=== PATIENT | female | born 1980 | race Hispanic/Latino ===

== ENCOUNTER 2017-03-16 17:50 | Emergency (ER) | payer BC, OTHER ==
[2017-03-16 18:22] LABS: Hematocrit 26.6 % (36.0-47.0); Mean Platelet Volume 9.7 fL (7.4-10.4); Red Blood Cell (RBC) Count 4.04 mill/uL (4.20-5.40); White Blood Cell (WBC) Count 5.9 thou/uL (4.8-10.8)
[2017-03-16 18:42] LABS: ALT (SGPT) 249 U/L (8-55); AST (SGOT) 261 U/L (5-34); Alkaline Phosphatase 105 U/L (40-150); Anion Gap 11 mmol/L (10-20); BUN (Urea Nitrogen) 12 mg/dL (7.0-18.7); Bilirubin, Total 0.9 mg/dL (0.2-1.2); Calc. Creatinine Clearance 0 mL/min (70-130); Calcium 8.7 mg/dL (7.8-10.44); Carbon Dioxide 24 mmol/L (22-29); Chloride 108 mmol/L (98-107); Estimated GFR-MDRD Greater than 90; Globulin 3.5 g/dL (2.4-3.5); Lipase 26 U/L (8-78); Protein, Total 7.7 g/dL (6.0-8.3)
[2017-03-16 18:47] LABS: #Eosinphils 0.1 thou/uL (0.0-0.7); #Lymphocytes 1.7 thou/uL (1.20-3.40); #Monocytes 0.4 thou/uL (0.11-0.59); #Neutrophils 3.7 thou/uL (1.40-6.50); %Basophils 0.6 % (0.0-1.0); %Eosinophils 2.4 % (0.0-10.0); %Lymphocytes 29.2 % (21.0-51.0); Anisocytosis SLIGHT = 6-15 cells (100X) (0-5/hpf); Hypochromia SLIGHT = 6-15 cells (100X) (0-5/hpf); Microcytosis SLIGHT = 6-15 cells (100X) (0-5/hpf); Ovalocytes SLIGHT = 2-5 cells (100X) (0-1/hpf); Tear Drops SLIGHT = 2-5 cells (100X) (0-1/hpf)
[2017-03-16 19:02] LABS: Bilirubin Small (Negative); Blood, Urine Negative (Negative); Glucose, Urine (Dipstick) Negative (Negative); Ketone, Urine Trace mg/dL (Negative); Nitrite Negative (Negative); Protein, Urine (Dipstick) Trace mg/dL (Neg-Trace)
--- NOTE | 2017-03-16 20:21 | ULT ---
GALLBLADDER ULTRASOUND: Date: 03/16/17 CLINICAL HISTORY: Abdominal pain, elevated liver function enzymes. FINDINGS: There is no focal hepatic lesion or acute gallbladder pathology. The common duct is normal measuring 4.0 mm in diameter. There is no ascites. IMPRESSION: No acute abnormality demonstrated within the right upper quadrant. POS: [facility]
== END 2017-03-16 22:20 | disposition home or self-care (01) ==
LOC: ERS 17:50
DX: K80.50 Calculus of bile duct without cholangitis or cholecystitis without obstruction (principal); D64.9 Anemia, unspecified; E11.9 Type 2 diabetes mellitus without complications; I10 Essential (primary) hypertension; F32.9 Major depressive disorder, single episode, unspecified; Z79.899 Other long term (current) drug therapy
CPT/HCPCS: 36415; 76705; 80053; 80074; 81003; 81025; 83690; 85025; 86308

== ENCOUNTER 2017-03-17 15:24 | Outpatient (CLI) | payer OTHER | END 2017-03-17 15:25 | disposition home or self-care (01) | LOC: LABBT 15:24 | PROVIDERS: ATTEND Surgery | DX: Z01.812 Encounter for preprocedural laboratory examination (principal); K80.20 Calculus of gallbladder without cholecystitis without obstruction ==

== ENCOUNTER 2017-03-18 09:16 | Inpatient (IN) | payer OTHER ==
[2017-03-17 15:58] VITALS: BMI 34.8
[2017-03-18] MEDS ORDERED: cefOXitin Sodium 2 GM, Syringe 1 ML in Sterile Water 10 ML SLOW IVP SCH (10:00)
[2017-03-18] MEDS ORDERED: Bupivacaine/Epinephrine 0.25% 30 ML VIAL ONE (10:50)
[2017-03-18] MEDS ORDERED: Midazolam HCl 2 mg/2 ml Vial ONE (10:59)
[2017-03-18] MEDS ORDERED: Fentanyl 100 MCG/2 ML VIAL ONE ×2 (10:59→13:40)
[2017-03-18] MEDS ORDERED: Iothalamate Meglumine 60% 50 ML VIAL FS ONE (11:00)
[2017-03-18] MEDS ORDERED: Morphine 4 MG/ML Carpuject SLOW IVP PRN (13:18)
[2017-03-18] MEDS ORDERED: Calcium Carbonate 500 MG ChewTAB PO PRN (13:18)
[2017-03-18] MEDS ORDERED: Promethazine HCl 25 MG/ML VIAL IM PRN ×2 (13:18→14:59)
[2017-03-18] MEDS ORDERED: Dextrose 5% in Water 1,000 ML IV PRN (13:18)
[2017-03-18] MEDS ORDERED: Mag-Al 1200 mg/1200 mg/30 ML UDCUP PO PRN (13:18)
[2017-03-18] MEDS ORDERED: Ondansetron HCl/PF 4 MG/2 ML Vial IVP PRN ×2 (13:18→14:59)
[2017-03-18] MEDS ORDERED: hydrALAZINE 20 MG/ML VIAL SLOW IVP PRN (13:18)
[2017-03-18] MEDS ORDERED: Dextrose 50% Abboject 50 ML SYRINGE SLOW IVP PRN (13:18)
[2017-03-18] MEDS ORDERED: Insulin Regular 300 UNITS/3 ML VIAL SC PRN (13:18)
--- NOTE | 2017-03-18 13:34 | OP ---
DATE OF PROCEDURE: 03/18/2017 PREOPERATIVE DIAGNOSES: Symptomatic cholelithiasis with elevated liver function tests. SURGEON: Dex Allred M.D. PROCEDURE PERFORMED: Laparoscopic cholecystectomy with intraoperative cholangiogram. INDICATIONS: A 37-year-old female who has lost a lot of weight and started having episodic right upp er quadrant pain. Ultrasound showed cholelithiasis. Her LFTs were elevated. FINDINGS: She had a little bit of thickened gallbladder wall, small stones. The cholangiogram showe d, I could only get a wisp of dye into the duodenum despite glucagon, suggestive of an obstruction. PROCEDURE: After informed consent was obtained, the patient was taken to the operating room and give n general endotracheal anesthesia. She was placed in the supine position. The abdomen was prepped a nd draped in the usual fashion. Local anesthesia infiltrated subcutaneously and deep and a supraumbi lical incision was performed. The subcu divided sharply. The fascia incised. Digital palpation rev ealed no local adhesions. A blunt 10/12 mm trocar inserted. Pneumoperitoneum was created to a press ure of 15 mmHg. Zero degree laparoscope inserted. Under direct vision, three 5 mm ports placed subc ostally. The gallbladder grasped and advanced superiorly, peritoneum lysed distally to expose the cy stic artery, cystic duct and critical view. A clip was placed at the base of the gallbladder. An in cision made in the cystic duct, an Arrow cholangiocatheter inserted. An intraoperative cholangiogram was performed. This showed normal intrahepatic ducts, normal extrahepatic ducts, but no flow into t he duodenum, only a wisp. We gave her 1 mg of glucagon and waited for 5 minutes, repeated the exam, still no flow into the duodenum. The duct was triply ligated with Hemoclips and divided. The artery triply ligated with Hemoclips and divided. The gallbladder was removed from its fossa utilizing víctor ctrocautery, removed from the abdomen through the umbilical port. Hemostasis was assured. Trocars a nd retractors removed. The fascia closed with interrupted 0 Vicryl suture. The skin closed with int errupted 4-0 Rapide. Dermabond applied. The patient tolerated the procedure well and transferred to recovery in good condition. Sponge and needle count verified correct x2.
[2017-03-18] MEDS ORDERED: Promethazine HCl 25 MG/ML VIAL ONE (13:39)
[2017-03-18] MEDS ORDERED: HYDROmorphone 0.5 MG/0.5 ML SYRINGE ONE (14:24)
--- NOTE | 2017-03-18 14:51 | RAD ---
OPERATIVE CHOLANGIOGRAM: Technique: Four fluoroscopic images from OR presented. Indication: Intraoperative cholangiogram performed during cholecystectomy procedure. FINDINGS: Common duct is opacified. There is suggestion of a lucent filling defect in the upper common duct. No other filling defect or stricture is seen. Lower common duct is not well evaluated. POS: [facility]
[2017-03-18] MEDS ORDERED: Promethazine HCl 25 MG/ML VIAL SLOW IVP PRN (14:59)
[2017-03-18] MEDS: Lactated Ringer's 1,000 ML IV SCH ×2 (15:03→21:01)
[2017-03-18] MEDS ORDERED: Propofol 200 MG/20 ML VIAL ONE (15:58)
[2017-03-18] MEDS ORDERED: Dexamethasone 20 MG/5 ML VIAL ONE (15:58)
[2017-03-18] MEDS ORDERED: PHENYLEPHRINE-NS 100 MCG/ML 10 ML SYRINGE ONE (15:58)
[2017-03-18] MEDS ORDERED: Ondansetron HCl/PF 4 MG/2 ML Vial ONE (15:58)
[2017-03-18] MEDS ORDERED: Ketorolac Tromethamine 30 MG/ML VIAL ONE (15:58)
[2017-03-18] MEDS ORDERED: Glycopyrrolate 0.2 MG/ML 5 ML SYRINGE ONE (15:58)
[2017-03-18] MEDS ORDERED: Lidocaine 1% PF 5 ML VIAL ONE (15:58)
[2017-03-18] MEDS: Piperacillin/Tazobactam 3.375 GM in Sodium Chloride 0.9% 100 ML IVPB SCH ×2 (16:02→21:01)
[2017-03-18] MEDS ORDERED: Morphine 10 MG/ML CARPUJECT SLOW IVP PRN (16:55)
[2017-03-18] MEDS ORDERED: Sodium Chloride 0.9% 10 ML ONE (17:02)
[2017-03-18] MEDS: Morphine 10 MG/ML CARPUJECT SLOW IVP PRN ×2 (17:04→21:01)
[2017-03-18] MEDS: Famotidine/PF 20 mg/2ml Vial SLOW IVP SCH (21:01)
[2017-03-18] MEDS: Famotidine 20 MG TAB PO SCH (23:25)
[2017-03-19] MEDS: Morphine 10 MG/ML CARPUJECT SLOW IVP PRN ×4 (01:09→22:01)
[2017-03-19] MEDS: Piperacillin/Tazobactam 3.375 GM in Sodium Chloride 0.9% 100 ML IVPB SCH ×4 (03:33→21:57)
--- NOTE | 2017-03-19 05:37 | CON ---
DATE OF CONSULTATION: 03/18/2017 REASON FOR CONSULTATION: Possible choledocholithiasis. CONSULTING PHYSICIAN: Dr. Dex Allred. HISTORY OF PRESENT ILLNESS: Patient is a 37-year-old female with past medical history of GERD, hypertension, diabetes, and morbid obesity status post gastric sleeve bariatric surgery presenting with increased right lower quadrant abdominal pain and elevated transaminitis. Earlier today, patient was taken to the operating room for cholecystectomy secondary to symptomatic cholelithiasis and mildly elevated liver enzymes with a mildly elevated AST and ALT (per surgeon). During the course of the operation, an intraoperative cholangiogram was performed with minimal contrast seen extruded across the ampulla and into the small intestine concerning for obstruction. The surgical procedure was completed uneventfully with no significant complications; however, the patient was admitted overnight for observation and evaluation by GI service for possible choledocholithiasis. At the current point in time, she does endorse mild abdominal pain in all abdominal quadrants characterized as an aching/sharp type pain severity of approximately 4 to 5/10 nonradiating with exacerbation by palpation to the regions consistent with post-surgical cholecystectomy. Otherwise, no complaints or problems. Denies nausea, vomiting, fevers, chills, shortness of breath, dysphagia, odynophagia, constipation, diarrhea, or jaundice. OUTPATIENT MEDICATIONS: Unavailable for review. PAST MEDICAL HISTORY: See HPI. PAST SURGICAL HISTORY: Cholecystectomy, gastric sleeve surgery in 11/2015. FAMILY HISTORY: Denies any GI malignancy. SOCIAL HISTORY: Denies any tobacco, alcohol or illicit drug use. INPATIENT MEDICATIONS: Reviewed. ALLERGIES: No known drug allergies. PHYSICAL EXAMINATION: VITAL SIGNS: Temperature 98.4, pulse 75, blood pressure 119/56, respiratory rate 18, satting 98% on room air. GENERAL: No acute distress. Alert and oriented x4. NECK: Supple. No JVD noted. CARDIOVASCULAR: Regular rate and rhythm with no discernible murmurs, gallops or rubs. RESPIRATORY: Clear to auscultation bilaterally with no wheezes or rales auscultated. ABDOMEN: Normoactive bowel sounds, soft, tenderness to palpation in all abdominal quadrants with only deep palpation. Surgical trocar sites from prior cholecystectomy noted. EXTREMITIES: No cyanosis, clubbing or edema. NEUROLOGIC: No gross sensory or motor deficits noted. LABORATORY DATA: No current labs available for review. IMAGING: Intraoperative cholangiogram obtained on March 18, 2017, showing no abnormalities within the common bile duct; however, there is suggestion of a lucent filling defect in the upper common duct, lower common duct not well visualized. ASSESSMENT AND PLAN: The patient is a 37-year-old female with past medical history of gastroesophageal reflux disease, hypertension, diabetes, and morbid obesity status post gastric sleeve, now also status post laparoscopic cholecystectomy with intraoperative cholangiogram showing possible choledocholithiasis. Choledocholithiasis The patient presenting with right upper quadrant abdominal pain and mildly elevated transaminitis consistent with symptomatic cholelithiasis; however, upon laparoscopic cholecystectomy today and intraoperative cholangiogram was performed showing a minimal extrusion of contrast from the common bile duct into the small bowel concerning for a possible obstruction in the distal common bile duct. At this time, there could be multiple reasons for this particular finding including impacted gallstone, papillary stenosis, inadequate visualization of the common bile duct and/or malignancy (much less likely). Given her history of approximately 100-pound weight loss over the last year from her gastric sleeve surgery, she is at risk for gallstone formation and it is potentially possible for choledocholithiasis as a result. PLAN: 1. Continue Zosyn as you are doing for antibiotic treatment of possible choledocholithiasis. 2. We will obtain CBC, chemistry and PT/INR in the morning for more accurate evaluation of current clinical status. 3. We will plan for ERCP tomorrow with sphincterotomy for evaluation of possible lucent filling defects seen on cholangiogram today. [facility]OSPITALJamal
[2017-03-19 06:23] LABS: Prothrombin Time 14.3 SEC (12.0-14.7)
[2017-03-19 06:33] LABS: ALT (SGPT) 305 U/L (8-55); AST (SGOT) 158 U/L (5-34); Alkaline Phosphatase 231 U/L (40-150); Anion Gap 7 mmol/L (10-20); BUN (Urea Nitrogen) 7 mg/dL (7.0-18.7); Bilirubin, Total 1.3 mg/dL (0.2-1.2); Calc. Creatinine Clearance 165 mL/min (70-130); Calcium 8.6 mg/dL (7.8-10.44); Carbon Dioxide 28 mmol/L (22-29); Chloride 107 mmol/L (98-107); Estimated GFR-MDRD Greater than 90; Globulin 2.9 g/dL (2.4-3.5); Lipase 6 U/L (8-78); Protein, Total 6.4 g/dL (6.0-8.3)
[2017-03-19 06:48] LABS: #Eosinphils 0.1 thou/uL (0.0-0.7); #Lymphocytes 2.3 thou/uL (1.20-3.40); #Monocytes 0.6 thou/uL (0.11-0.59); #Neutrophils 4.7 thou/uL (1.40-6.50); %Basophils 0.4 % (0.0-1.0); %Eosinophils 1.1 % (0.0-10.0); %Lymphocytes 29.6 % (21.0-51.0); %Monocytes 7.6 % (0.0-10.0); Elliptocytes SLIGHT = 2-5 cells (100X) (0-1/hpf); Hematocrit 22.8 % (36.0-47.0); Hypochromia SLIGHT = 6-15 cells (100X) (0-5/hpf); Mean Platelet Volume 9.2 fL (7.4-10.4); Microcytosis SLIGHT = 6-15 cells (100X) (0-5/hpf); Red Blood Cell (RBC) Count 3.46 mill/uL (4.20-5.40); White Blood Cell (WBC) Count 7.7 thou/uL (4.8-10.8)
[2017-03-19] MEDS: Lactated Ringer's 1,000 ML IV SCH ×2 (07:28→14:55)
[2017-03-19] MEDS: Famotidine 20 MG TAB PO SCH ×2 (08:35→21:58)
[2017-03-19] MEDS: Famotidine/PF 20 mg/2ml Vial SLOW IVP SCH ×2 (08:35→22:14)
[2017-03-19] MEDS ORDERED: Iothalamate Meglumine 60% 50 ML VIAL FS ONE (14:08)
[2017-03-19] MEDS ORDERED: Indomethacin 50 MG SUPP ONE (14:08)
[2017-03-19] MEDS ORDERED: Fentanyl 100 MCG/2 ML VIAL ONE (14:15)
[2017-03-19] MEDS ORDERED: Succinylcholine Chloride 20 MG/ML 10 ml SYRINGE FS ONE (14:27)
[2017-03-19] MEDS ORDERED: Propofol 200 MG/20 ML VIAL ONE (14:27)
[2017-03-19] MEDS ORDERED: Dexamethasone 20 MG/5 ML VIAL ONE (14:27)
[2017-03-19] MEDS ORDERED: Ondansetron HCl/PF 4 MG/2 ML Vial ONE (14:27)
[2017-03-19] MEDS ORDERED: Lidocaine 1% PF 5 ML VIAL ONE (14:27)
[2017-03-19] MEDS ORDERED: ePHEDrine/0.9% NaCl/PF SYRINGE 50 mg/10 ml ONE (14:27)
[2017-03-19] MEDS ORDERED: Promethazine HCl 25 MG/ML VIAL SLOW IVP PRN (15:35)
[2017-03-19] MEDS ORDERED: Meperidine HCl/PF 25 MG/ML VIAL SLOW IVP PRN (15:35)
[2017-03-19] MEDS ORDERED: Ondansetron HCl/PF 4 MG/2 ML Vial IVP PRN (15:35)
[2017-03-19] MEDS ORDERED: Promethazine HCl 25 MG/ML VIAL IM PRN (15:35)
--- NOTE | 2017-03-19 16:04 | RAD ---
ERCP 03/19/17 COMPARISON: None. HISTORY: Cholelithiasis. FINDINGS/IMPRESSION: A single limited intraoperative fluoroscopic view from an ERCP was submitted for interpretation. Cont rast is seen in the common bile duct. No filling defects are seen. Surgical clips are seen. No contra st extends into the biliary tree of the liver. POS: [facility]
[2017-03-20] MEDS: Piperacillin/Tazobactam 3.375 GM in Sodium Chloride 0.9% 100 ML IVPB SCH ×2 (03:26→09:14)
[2017-03-20] MEDS: Lactated Ringer's 1,000 ML IV SCH ×2 (03:47→08:56)
[2017-03-20 06:05] LABS: ALT (SGPT) 218 U/L (8-55); AST (SGOT) 62 U/L (5-34); Alkaline Phosphatase 205 U/L (40-150); Bilirubin, Direct 0.4 mg/dL (0.1-0.3); Bilirubin, Total 0.9 mg/dL (0.2-1.2); Protein, Total 6.5 g/dL (6.0-8.3)
[2017-03-20 08:25] VITALS: BP 127/65; TEMP 98.8
[2017-03-20] MEDS: Famotidine/PF 20 mg/2ml Vial SLOW IVP SCH (08:58)
[2017-03-20] MEDS: Famotidine 20 MG TAB PO SCH (09:13)
--- NOTE | 2017-03-20 10:29 | PRG ---
DATE OF SERVICE: 03/20/2017 REASON FOR CONSULTATION: Possible choledocholithiasis. OBJECTIVE: Overnight, the patient without any particular complaints. Does have some mild abdominal tenderness in the midepigastric and right upper quadrant, but unchanged from previous. No significant increase in this pain overnight, consistent with pancreatitis. Currently, denies any nausea, vomiting , fevers, chills, shortness of breath, odynophagia, dysphagia, diarrhea, or constipation. IMAGING DATA: ERCP performed on 03/19/2017 showing no significant filling defect within the common bile duct. A sphincterotomy was performed with sweeping of the bile duct performed with endoscopic balloon with no obtaining of sludge, stones, or fragments or debris. ASSESSMENT: The patient is a 37-year-old female with past medical history of gastroesophageal reflux disease, hypertension, diabetes, morbid obesity, status post gastric sleeve surgery now also status post laparoscopic cholecystectomy with intraoperative cholangiogram showing possible choledocholithiasis, not seen on endoscopic retrograde cholangiopancreatography. Choledocholithiasis. The patient presenting with right upper quadrant abdominal pain and mildly elevated transaminitis consistent with symptomatic cholelithiasis; however, upon laparoscopic cholecystectomy and intraoperative cholangiogram performed showed minimal extrusion of contrast into the small intestine via the ampulla. Endoscopic retrograde cholangiopancreatography performed on 03/19/2017 did not show any filling defects, stones, or other abnormalities that would contribute to this imaging finding. Currently, without any pain or post-endoscopic retrograde cholangiopancreatography pancreatitis, doing well. PLAN: 1. Can discontinue Zosyn, if you are doing so for possible choledocholithiasis. 2. From GI standpoint, the patient can be discharged with follow up in the GI clinic in 3-4 weeks for followup on her transaminitis. JANAE
--- NOTE | 2017-03-20 12:46 | DIS ---
DISCHARGE DIAGNOSES: 1. Acute cholecystitis. 2. Choledocholithiasis. PROCEDURES DURING ADMISSION: Laparoscopic cholecystectomy, intraoperative cholangiogram, ERCP with s phincterotomy and stone extraction. HOSPITAL COURSE: Patient was admitted and taken to the operating room where she underwent a laparosc opic cholecystectomy with cholangiogram that showed obstruction of the distal common duct. GI was co nsulted. She was taken to the endo suite where she underwent ERCP with sphincterotomy and stone extr action. Postoperatively, she has done well. She is tolerating diet well. Pain is controlled. She is discharged home in good condition on hydrocodone and Zofran. She will follow up with me in 2 week s.
== END 2017-03-20 10:45 | disposition home or self-care (01) | DRG 419 ==
LOC: SDC 09:16 → 3SE 13:18
PROVIDERS: ADMIT Surgery; ATTEND Surgery
PROC: 0FT44ZZ Resection of Gallbladder, Percutaneous Endoscopic Approach (ICD-10-PCS; principal; 2017-03-18)
PROC: BF101ZZ Fluoroscopy of Bile Ducts using Low Osmolar Contrast (ICD-10-PCS; 2017-03-18)
PROC: 0F798ZZ Dilation of Common Bile Duct, Via Natural or Artificial Opening Endoscopic (ICD-10-PCS; 2017-03-19)
PROC: BF101ZZ Fluoroscopy of Bile Ducts using Low Osmolar Contrast (ICD-10-PCS; 2017-03-19)
DX: K80.43 Calculus of bile duct with acute cholecystitis with obstruction (principal); I10 Essential (primary) hypertension; K21.9 Gastro-esophageal reflux disease without esophagitis; E11.9 Type 2 diabetes mellitus without complications; E66.9 Obesity, unspecified; Z68.34 Body mass index [BMI] 34.0-34.9, adult; Z98.84 Bariatric surgery status; E78.00 Pure hypercholesterolemia, unspecified; F32.9 Major depressive disorder, single episode, unspecified; Z91.5 Personal history of self-harm
CPT/HCPCS: 36415; 47532; 74330; 76705; 80053; 80074; 80076; 81003; 81025; 83690; 85025; 85610; 86308; 88304; A4216; J0694; J1100; J1170; J1610; J1885; J2001; J2250; J2270; J2405; J2543; J2550; J2704; J3010; J7050; Q9961; S0028

== ENCOUNTER 2018-05-20 08:17 | Outpatient (CLI) | payer OTHER ==
--- NOTE | 2018-05-20 10:08 | ULT ---
PELVIC ULTRASOUND: HISTORY: Menorrhagia. COMPARISON: 08/31/2013. TECHNIQUE: Transabdominal and endovaginal imaging of the pelvis is performed. Ovaries are interrogated with gra y scale, color flow, Doppler imaging with spectral waveform analysis. FINDINGS: Uterus is identified, without myometrial masses. Limited evaluation of the myometrium. Visualized e ndometrium has a homogeneous echotexture measuring 1.5 cm. The left ovary has a normal echotexture m easuring 2.7 x 2.1 x 1.9 cm. The right ovary has a normal echotexture measuring 1.9 x 4.1 x 2.3 cm. There is no free fluid. Incidental nabothian cysts are noted. OVARIAN DOPPLER: Vascular flow to both ovaries. IMPRESSION: Unremarkable pelvic ultrasound. Given patient's history, pelvic MRI or sonohystogram may be benefici al to better evaluate the endometrial lining. POS: [facility]
== END 2018-05-20 08:18 | disposition home or self-care (01) ==
LOC: BICULT 08:17
PROVIDERS: ATTEND Family Medicine
DX: N92.0 Excessive and frequent menstruation with regular cycle (principal)
CPT/HCPCS: 76856

== ENCOUNTER 2018-11-09 12:46 | Outpatient (CLI) | payer OTHER ==
[2018-11-09 16:08] LABS: Mean Corpuscular HGB CONC 33.2 g/dL (32.0-36.0); Mean Corpuscular Hemoglobin 28.5 pg (27.0-31.0); Mean Platelet Volume 8.1 fL (7.4-10.4); Platelet Count 336 thou/uL (130-400); RBC Distribution Width 12.1 % (11.5-14.5); Red Blood Cell (RBC) Count 4.57 mill/uL (4.20-5.40); White Blood Cell (WBC) Count 9.4 thou/uL (4.8-10.8)
[2018-11-09 16:14] LABS: BHCG - Serum Negative (NEGATIVE); Pregs Control Background? CLEAR/WHITE (CLR/WHITE); Pregs Control Bar Appear? YES (CONTROL BAR)
== END 2018-11-09 12:47 | disposition home or self-care (01) ==
LOC: LABBT 12:46
PROVIDERS: ATTEND Student in an Organized Health Care Education/Training Program
DX: Z01.812 Encounter for preprocedural laboratory examination (principal); N92.0 Excessive and frequent menstruation with regular cycle; D64.9 Anemia, unspecified; R10.2 Pelvic and perineal pain
CPT/HCPCS: 84703; 85027; 86850; 86900; 86901

== ENCOUNTER → 2018-11-10 | Day surgery (SDC) | payer OTHER ==
[2018-11-09 15:27] VITALS: BMI 36.6
[~2018-11-10] MED LIST: Bupivacaine HCl 0.5%/Epinephrine 1:200,000/PF 30 ml Vial ONE; CeleCOXIB 100 MG CAP ONE; Famotidine/PF 20 mg/2ml Vial ONE; Fentanyl 100 MCG/2 ML VIAL ONE; Gabapentin 300 MG CAP ONE; HYDROcodone/Acetaminophen 5/325 mg Tablet ONE; Midazolam HCl 2 mg/2 ml Vial ONE; Promethazine HCl 25 MG/ML VIAL ONE; ceFAZolin Sodium (SDC) 2 GM/100 ML BAG ONE
--- NOTE | 2018-11-11 09:05 | OP ---
DATE OF PROCEDURE: 11/10/2018 PREOPERATIVE DIAGNOSES: 1. Uterine fibroids. 2. Menorrhagia to anemia. 3. Pelvic pain. POSTOPERATIVE DIAGNOSES: 1. Uterine fibroids. 2. Menorrhagia to anemia. 3. Pelvic pain. PROCEDURES PERFORMED: Robotic-assisted total laparoscopic hysterectomy, bilateral salpingectomy, and lysis of adhesions. ANESTHESIA: General endotracheal. MRI TECH SURGEON: Marleni Sotelo PA-C. ESTIMATED BLOOD LOSS: 50 mL. IVF: 1500 mL of crystalloid. URINE OUTPUT: 280 mL clear urine. COMPLICATIONS: None. DRAINS: Angelo catheter. PATHOLOGY: Uterus, cervix, bilateral fallopian tubes. FINDINGS: A mobile 11 cm uterus with several subserosal fibroids that were small. Normal-appearing fallopian tubes and ovaries bilaterally. Omental adhesions and umbilical hernia present containing omentum that was incised to allow for visualization during the surgery. OPERATIVE TECHNIQUE: The patient was taken to the operating room, where general anesthesia was obtained without difficulty. The patient was prepped and draped in a sterile fashion in dorsal lithotomy position. A Angelo catheter was placed in the bladder. A speculum was placed in the vagina. The anterior lip of the cervix was grasped with single-tooth tenaculum. The uterus then sounded to 10 cm and was visible with a 10 cm tip and a 3.5 cm colpotomizer ring. The manipulator tip was inserted into the uterine fundus after dilating the cervix with Mckay dilators. The balloon was inflated. The colpotomizer ring was advanced to fit snugly around the cervix, and the instruments were removed out of the vagina. The legs were placed in low lithotomy. Attention was turned to the abdomen. The patient had an umbilical hernia present that was noted at the time of surgery; therefore, decision was made to approach the entry above the umbilical hernia. A 12-mm skin incision was made just above the umbilicus in a transverse fashion, and the Veress needle was passed into the abdomen noting an opening pressure of 4 mmHg. Pneumoperitoneum was obtained without difficulty. The Veress needle was removed. The 12 mm trocar was advanced into the abdomen and confirmed placement with robotic camera. At that time, it was noted that the hernia contained the omentum and no small bowel. The right and left lower quadrant 8 mm robotic trocars were placed under direct visualization after infiltrating with 0.5% Marcaine with epi. The right upper quadrant 11 mm bindery library technical assistant port was placed under direct visualization after infiltrating with 0.5% Marcaine with epi. Steep Trendelenburg was obtained and at that time, the robot was docked. The right robotic arm contained monopolar scissors and left robotic arm contained a fenestrated bipolar. The omental adhesions in the umbilical hernia were grasped close to the anterior abdominal wall. The fenestrated was used to cauterize to prevent bleeding, and the scissors were used to incise until the omental adhesion had been completely released. At that time, the right fallopian tube was grasped and elevated. The mesosalpinx was sequentially clamped, cauterized, and transected until the medial portion was met that was clamped across, cauterized, transected, and fallopian tube removed out of the abdomen. The utero-ovarian was cauterized multiple times with the fenestrated and incised with the scissors. The round ligament was also incised after cautery with fenestrated. The posterior leaf of the broad ligament was dropped down to the level of the uterosacral ligament. The retroperitoneum was dissected off the uterine pedicle and into the pelvic sidewall to allow the ureter to fall well away, which was visualized retroperitoneally. The anterior leaf of the broad ligament was also layered out and incised with scissors ensuring a clear window, undermining with the fenestrated. There was some scarring to the lower uterine segment from the patient's previous C-sections, and this was carefully layered out to ensure that no inadvertent bladder injury was made. The attention was turned to the left side, where the left fallopian tube was grasped and elevated. A window was made in the mesosalpinx with the scissors, and the vessels were cauterized and transected. The medial portion of the fallopian tube was clamped across, cauterized, and transected, and fallopian tube was removed out of the abdomen. The utero-ovarian was cauterized multiple times and transected with the scissors. The round ligament was also cauterized and transected. The posterior leaf of the broad ligament was incised with the scissors to the level of the uterosacral, and the vessels were skeletonized bilaterally and incising with the scissors as well as blunt dissection, pushing and spreading with fenestrated. The anterior leaf of broad ligament was dropped down to the level of the bladder flap, and scoring on the pubocervical fascia with blunt dissection on the back end of the scissors allowed the remaining adventitial fibers from the bladder to be dissected below the level of the colpotomizer ring. The vessels were then cauterized multiple times bilaterally with the fenestrated. The anterior colpotomy was performed and carried around laterally ensuring hemostasis of the uterine pedicle and then completed posteriorly. At that time, the uterus was placed into the vagina and the scissors were traded out for the needle party bus driver. The cuff was irrigated, and hemostasis was achieved with the fenestrated. The cuff was then closed with a 2-0 STRATAFIX suture in a running fashion incorporating vaginal mucosa and posterior peritoneum in each bite and ensuring hemostasis. This was run back for a second layer, and the needle was then cut and removed out of the abdomen. The bladder was backfilled, and there was no extravasation of saline into the pelvis, indicating no bladder injury. The ureters were visible bilaterally vermiculating in the pelvic sidewall, and low pressure check was performed, and hemostasis was noted to be excellent. Copious irrigation and suction of the pelvis were performed as well. All instruments were removed out of the abdomen. The robot was undocked. The fascia of the umbilical port was closed with the 0 Vicryl in a [id number] fashion. The skin was closed with 4-0 Monocryl in subcuticular fashion. Dermabond was applied. The vaginal cuff was checked and noted to have excellent closures and hemostasis. All instruments were removed out of the vagina. The patient tolerated the procedure well. Sponge, lap, and needle counts correct x2. The patient was taken to recovery room in stable condition. The patient received Ancef 2 g prior to procedure. Job ID: [id number]
== END ==
LOC: SDC 05:44
PROVIDERS: ATTEND Student in an Organized Health Care Education/Training Program
DX: D25.2 Subserosal leiomyoma of uterus (principal); N92.0 Excessive and frequent menstruation with regular cycle; N72 Inflammatory disease of cervix uteri; N80.0 Endometriosis of uterus; D50.9 Iron deficiency anemia, unspecified; E66.9 Obesity, unspecified; F41.9 Anxiety disorder, unspecified; F32.9 Major depressive disorder, single episode, unspecified; Z68.36 Body mass index [BMI] 36.0-36.9, adult; Z79.899 Other long term (current) drug therapy
CPT/HCPCS: 84703; 85027; 86850; 86900; 86901; 88307; J0131; J0670; J0690; J2250; J2550; J3010; Q9968; S0028

== ENCOUNTER 2019-02-16 08:06 | Outpatient (CLI) | payer OTHER ==
--- NOTE | 2019-02-16 09:25 | CT ---
CT Abdomen Pelvis W Con: 02/16/2019 12:00 AM CLINICAL INFORMATION: Mid abdominal pain that radiates to the right lower quadrant COMPARISON: None. TECHNIQUE: Multiple contiguous axial images were obtained and a CT of the abdomen and pelvis with IV contrast. Oral contrast was administered. Coronal and sagittal reformats were performed. FINDINGS: Lower Chest: within normal limits. Abdomen: Liver: within normal limits. Bile Ducts: Air in the biliary tree is likely secondary to prior sphincterotomy at the ampulla of Vat er. Gallbladder: Removed Pancreas: within normal limits. Spleen: within normal limits. Adrenals: within normal limits. Kidneys: within normal limits. Pelvis: Reproductive Organs: Status post hysterectomy. Ureters: within normal limits. Bladder: within normal limits. Peritoneum: No ascites or free air, no fluid collection. Bowel: Normal caliber. Prior gastric sleeve procedure. Normal appendix. Mesentery and Retroperitoneum: No enlarged mesenteric or retroperitoneal lymph nodes. Vessels: Normal. Abdominal Wall: Scarring is seen in the lower abdominal wall with thickening just above the right rec tus abdominis musculature. Bones: Within normal limits IMPRESSION: No evidence of acute intraabdominal or pelvic abnormality.
[2019-02-16] MEDS ORDERED: Iopamidol-370 76% 500 ML 1 ML ONE (13:18)
== END 2019-02-16 08:07 | disposition home or self-care (01) ==
LOC: BICCT 08:06
PROVIDERS: ATTEND Nurse Practitioner Family
DX: L02.211 Cutaneous abscess of abdominal wall (principal); L02.216 Cutaneous abscess of umbilicus
CPT/HCPCS: 74177; Q9967

== ENCOUNTER 2020-01-11 07:32 | Outpatient (CLI) | payer BC, OTHER ==
[2020-01-11 16:21] LABS: #Eosinphils 0.1 thou/uL (0.0-0.7); #Monocytes 0.5 thou/uL (0.11-0.59); #Neutrophils 5.6 thou/uL (1.40-6.50); %Basophils 0.6 % (0.0-1.0); %Eosinophils 1.6 % (0.0-10.0); %Lymphocytes 24.1 % (21.0-51.0); %Monocytes 6.4 % (0.0-10.0); %Neutrophils 67.3 % (42.0-75.0); Mean Corpuscular HGB CONC 33.2 g/dL (32.0-36.0); Mean Corpuscular Volume 87.2 fL (78.0-98.0); Mean Platelet Volume 8.4 fL (7.4-10.4); Platelet Count 319 thou/uL (130-400); RBC Distribution Width 12.4 % (11.5-14.5); White Blood Cell (WBC) Count 8.3 thou/uL (4.8-10.8)
[2020-01-11 16:38] LABS: ALT (SGPT) 14 U/L (8-55); AST (SGOT) 16 U/L (5-34); Albumin 4.1 g/dL (3.5-5.0); Alkaline Phosphatase 77 U/L (40-110); Anion Gap 12 mmol/L (10-20); BUN (Urea Nitrogen) 10 mg/dL (7.0-18.7); Bilirubin, Total 0.5 mg/dL (0.2-1.2); Calc. Creatinine Clearance 0 mL/min (70-130); Calcium 8.7 mg/dL (7.8-10.44); Carbon Dioxide 24 mmol/L (22-29); Chloride 106 mmol/L (98-107); Estimated GFR-MDRD Greater than 90; Glucose 84 mg/dL (70-105); Protein, Total 7.1 g/dL (6.0-8.3); Sodium 138 mmol/L (136-145)
--- NOTE | 2020-01-12 07:12 | EKG ---
Test Reason : Blood Pressure : / mmHG Vent. Rate : 073 BPM Atrial Rate : 073 BPM P-R Int : 172 ms QRS Dur : 094 ms QT Int : 406 ms P-R-T Axes : 062 073 057 degrees QTc Int : 447 ms Normal sinus rhythm with sinus arrhythmia Low voltage QRS Borderline ECG No previous ECGs available Confirmed by DR. Lake HAWLEY ([id number]) on 01/12/2020 7:12:10 AM Referred By: DERRICK Confirmed By:DR. Lake HAWLEY
[2020-01-12 11:56] LABS: SARS-CoV-2 MS2 Positive; SARS-CoV-2 N Gene Negative; SARS-CoV-2 S Gene Negative; SARS-CoV-2 by NAA Not Detected (NotDetected); SARS-CoV-2 orf1ab Negative
== END 2020-01-11 07:33 | disposition home or self-care (01) ==
LOC: LABBT 07:32
PROVIDERS: ATTEND Surgery
DX: Z01.818 Encounter for other preprocedural examination (principal); K42.9 Umbilical hernia without obstruction or gangrene; Z20.828 Contact with and (suspected) exposure to other viral communicable diseases
CPT/HCPCS: 80053; 85025; 87635; 93005; 93010; U0003

== ENCOUNTER 2020-01-14 05:51 | Day surgery (SDC) | payer BC ==
[2020-01-12 11:50] VITALS: BMI 36.6
[2020-01-14] MEDS ORDERED: Meperidine HCl/PF 25 MG/ML VIAL ONE (06:17)
[2020-01-14] MEDS ORDERED: Famotidine/PF 20 mg/2ml Vial ONE (06:17)
[2020-01-14] MEDS ORDERED: Fentanyl 100 MCG/2 ML VIAL ONE ×3 (06:17→09:13)
[2020-01-14] MEDS ORDERED: Lidocaine 1% w/Epinephrine 1:100K 20 ML VIAL ONE (06:47)
[2020-01-14] MEDS ORDERED: Bupivacaine PF 0.5% 30 ML VIAL ONE (06:47)
[2020-01-14] MEDS ORDERED: Midazolam HCl 2 mg/2 ml Vial ONE (07:47)
[2020-01-14] MEDS ORDERED: SUGAMMADEX SODIUM 200 MG/2 ML VIAL ONE (07:49)
[2020-01-14] MEDS ORDERED: Bupivacaine HCl 0.5%/Epinephrine 1:200,000/PF 30 ml Vial ONE (07:58)
[2020-01-14] MEDS ORDERED: HYDROmorphone 2 MG/ML VIAL ONE (09:37)
[2020-01-14] MEDS ORDERED: Ondansetron PF 4 MG/2 ML Vial ONE (10:23)
[2020-01-14] MEDS ORDERED: Lidocaine 1% PF 5 ML VIAL ONE (10:23)
[2020-01-14] MEDS ORDERED: Metoclopramide HCl 10 MG/2 ML VIAL ONE (10:23)
[2020-01-14] MEDS ORDERED: Rocuronium Bromide 10 MG/ML (10ML VIAL) ONE (10:23)
[2020-01-14] MEDS ORDERED: PROPOFOL 200 MG/20 ML VIAL ONE (10:23)
[2020-01-14] MEDS ORDERED: Dexamethasone 20 MG/5 ML VIAL ONE (10:23)
[2020-01-14] MEDS ORDERED: Ketorolac Tromethamine 30 MG/ML VIAL ONE (10:23)
--- NOTE | 2020-01-14 10:26 | OP ---
DATE OF PROCEDURE: 01/14/2020 PREOPERATIVE DIAGNOSIS: Umbilical hernia. PROCEDURE PERFORMED: Umbilical hernia repair with mesh. INDICATIONS: A 39-year-old female with severe umbilical pain and a small nodule. Found to have umbilical hernia. FINDINGS: There was about a 0.5 cm defect with about 2 cm of fatty tissue coming through it. Opened that up and placed an 8 cm piece of mesh. DESCRIPTION OF PROCEDURE: After informed consent was obtained, the patient was taken to the operating room. She was given general mask anesthesia, placed in supine position. Abdomen was prepped and draped in usual fashion. Now, preoperatively, had marked where she was having her symptoms, which is actually just below the umbilicus, but I could feel the knot above the umbilicus, so made an upper midline incision just above the umbilicus. She is morbidly obese. As I got close to the fascia, I found a hernia with a hernia sac containing fatty tissue and a fairly small defect. This hernia sac was excised, actually the fat was excised. I could not hardly get my finger in and I did enlarge this opening so I could palpate down where she was complaining of the pain. There was no hernia there, so I felt all around. No other hernias felt. Then, an 8 cm Proceed mesh was hydrated, inserted intra-abdominally. The wings were sutured to the fascia with interrupted 0 Ethibond and the mesh was also further secured to the fascia superior and inferior with 0 Ethibond. Hemostasis achieved. Subcu reapproximated with interrupted 3-0 Vicryl. Skin closed with running subcuticular 4-0 Rapide. Steri-Strips applied. Sterile bandage applied. The patient tolerated the procedure well, transferred to Recovery in good condition. Sponge and needle count verified correct x2. Job ID: [id number]
[2020-01-14] MEDS ORDERED: HYDROcodone/Acetaminophen 5/325 mg Tablet ONE (11:23)
== END 2020-01-14 11:35 | disposition home or self-care (01) ==
LOC: SDC 05:51
PROVIDERS: ATTEND Surgery
PROC: 0WUF0JZ Supplement Abdominal Wall with Synthetic Substitute, Open Approach (ICD-10-PCS; principal; 2020-01-14)
DX: K42.9 Umbilical hernia without obstruction or gangrene (principal); F32.9 Major depressive disorder, single episode, unspecified; I11.9 Hypertensive heart disease without heart failure; E11.9 Type 2 diabetes mellitus without complications; E66.01 Morbid (severe) obesity due to excess calories; E78.00 Pure hypercholesterolemia, unspecified; Z68.36 Body mass index [BMI] 36.0-36.9, adult; Z79.899 Other long term (current) drug therapy; Z91.5 Personal history of self-harm
CPT/HCPCS: C1781; J0690; J1100; J1170; J1885; J2175; J2250; J2405; J2704; J2765; J3010; S0020; S0028

== ENCOUNTER 2024-05-14 10:01 | Outpatient (CLI) | payer BC ==
[2024-05-14] MEDS ORDERED: Iopamidol 370 76% 100 ML VIAL ONE (14:42)
== END 2024-05-14 10:02 | disposition home or self-care (01) ==
LOC: CT 10:01
PROVIDERS: ATTEND Nurse Practitioner Family
DX: N80.9 Endometriosis, unspecified (principal); R10.9 Unspecified abdominal pain
CPT/HCPCS: 74177; Q9967